=== PATIENT | male | born 1960 | race Caucasian/White ===

== ENCOUNTER 2018-07-18 17:03 | Observation (INO) ==
[2018-07-18] MEDS ORDERED: DILTIAZEM HCL 5 MG/ML VIAL IV ONE ×2 (17:12→17:16)
--- NOTE | 2018-07-18 17:15 | ERNOTE ---
Dyspnea - General Presenting Symptoms: shortness of breath Time Seen by Provider: 07/18/18 17:03 Source: patient Exam Limitations: no limitations - Immun/Allergies/Home Medications Immunizations: IMMUNIZATION HX Immunizations Up to Date Yes History of Influenza Vaccine No Hx Pneumococcal Vaccination No Allergies/Adverse Reactions: Allergies No Known Allergies Allergy (Verified 07/18/18 17:09) Home Medications: HOME MEDICATIONS Zolpidem Tartrate [Ambien] 10 mg PO HS PRN 02/14/18 [Last Taken Unknown] Celecoxib [Celebrex] 200 mg PO DAILY 07/18/18 [Last Taken Unknown] Diltiazem HCl [Cardizem] 30 mg PO QID #120 tablet 07/18/18 [Last Taken Unknown] traZODone HCL [Trazodone HCl] 50 mg PO ONCE PRN 07/18/18 [Last Taken Unknown] - History of Present Illness Narrative: Patient has been short of breath for about a month, he denies any chest pain, no palpitation, no recent illness or prior symptoms. He had an out patient EKG done and was found to be in afib with RVR and send to the ER. He had bilateral knee replacement five months ago, returned to work two months ago after being off for three months. Initiating event: Denies: upper resp illness, out of meds Frequency of episodes: Reports: no prior episodes Modifying Factors - (Improves): Reports: rest Modifying Factors (Worsens): Reports: activity Associated Symptoms-Dyspnea: Denies: fever/chills, chest pain/discomfort, palpitations, cough, wheezing, leg/calf pain Prior Treatment: Reports: recently seen. Denies: currently on antibiotics Review of Systems - Review of Systems Constitutional: Absent: recent illness, fever ENT: Absent: nose congestion, sore throat Respiratory: Present: shortness of breath. Absent: cough Cardiology: Present: chest pain Gastrointestinal/Abdominal: Absent: nausea, abdominal pain Genitourinary: Present: no symptoms reported Musculoskeletal: Absent: back pain Neurological: Absent: headache Medical History (Last Updated 07/18/18 @ 17:14 by Kate Magdaleno MD) Osteoarthritis Surgical History: Surgical History (Last Updated 07/18/18 @ 18:56 by Isabel Krishnamurthy RN) Hx of total knee replacement Family History: Family History (Last Updated 07/18/18 @ 18:58 by Isabel Krishnamurthy RN) Sister Strong family heart hx Mother Strong family heart hx Brother Strong family heart hx Father Strong family heart hx Social History: Preferred Language Montenegrin Smoking Status Former smoker Abuse History No History of abuse Psych History No pertinent hx Alcohol Use none Drug Use benzodiazepine Physical Exam - Physical Exam General Appearance: Present: wd/wn, alert, no apparent distress, anxious Head Exam: Present: normal inspection Eye Exam: Normal inspection: bilateral Ears, Nose, Throat: Present: normal pharynx Respiratory: Present: no respiratory distress, decreased breath sounds, expiration (prolonged) Cardiovascular/Chest: Present: tachycardia, irregularly irregular Gastrointestinal/Abdominal: Present: nontender, nondistended, soft Extremity Exam: Present: no edema Neurological Exam: Present: alert, oriented, normal mood/affect, no motor/sensory deficits Skin Exam: Present: normal color, warm/dry ED Progress - Results and Orders Patient's Lab Results:: I have reviewed the patient's lab results. - Vital Signs Patient's Vital Signs:: I have reviewed the patient's vital signs. Vital Signs: Vital Signs 07/18/18 17:06 Temperature 36.5 C Pulse Rate 167 H Respiratory Rate 22 H O2 Sat by Pulse Oximetry 99 - EKG EKG: atrial fibrillation EKG read: Interp. by me - X-Ray X-Ray #1 X-Ray: chest - cardiolomegalie, venous congestion Interpretation: Interp. by nv - CT/Ultrasound CT/Ultrasound Narrative: CT chest .1. Negative for acute pulmonary thromboembolism. 2. Suboptimal opacification of the thoracic aorta for angiographic evaluation, and nearly equivalent noncontrast imaging in regards to the thoracic aorta, without obvious acute findings. 3. Pulmonary vascular congestion, and interlobular septal prominence suggestive of interstitial edema. Other considerations also include diffuse interstitial infection/pneumonitis, versus lymphangitic spread of tumor. 4. Mild cardiomegaly. 5. Trace bilateral pleural fluid. 6. Peripheral bronchial wall thickening which could be due to interstitial edema affecting the peribronchial interstitium, but also consider superimposed chronic or acute bronchitis. 7. Recommend follow-up chest CT in 3-6 months. - Progress/Reassessment Chief Complaint: Dyspnea Progress Note-Subjective: 07/18/18 18:00 discussed test results, suggested admission for rate control, patient was very adamant that he didn't want to get admitted, is concerned about medical bills, insists on going home, resists discussing about follow up discussed risk of worsening CHF if rate not controlled discussed risk of stroke, patient is ready to sign out AMA will treat with oral cardizem 07/18/18 18:45 fiance at bedside patient now willing to stay 07/18/18 20:[address] Lee, okay to admit and continue to give cardizem 30mg po q6hr, as HR in 90's currently 07/18/18 20:[address] results with patient Departure Clinical Impression: Atrial fibrillation with RVR Congestive heart failure Qualifiers: Heart failure type: unspecified Heart failure chronicity: acute Qualified Code(s): I50.9 - Heart failure, unspecified - Departure Disposition: Against medical advice Condition: Stable
[2018-07-18 17:28] LABS: Hematocrit 41.1 % (42.0-52.0); Hemoglobin 13.6 gm/dL (13.5-18.0); Mean Cell Volume 92.2 fl (78-100); Mean Corpuscular Hemoglobin 30.5 pg (27-31); Mean Corpuscular Hgb Conc 33.1 g/dl (32-36); Mean Platelet Volume 9.9 fl (8-11.3); Neutrophil # 3.8 K/mm3 (1.3-6.0); Platelet Count 256 K/mm3 (150-450); Red Blood Count 4.46 M/mm3 (4.7-6.0); Red Cell Distribution Width 14.6 % (11.5-14.0); White Blood Count 7.1 K/mm3 (4.0-10.5)
[2018-07-18 17:51] LABS: ALT 25 U/L (19-67); AST 18 U/L (0-48); Albumin * 4.1 gm/dl (3.4-5.0); Alkaline Phosphatase * 75 U/L (50-170); Anion Gap 13.3 mmol/L (6.8-13.8); BNP * 1544 pg/mL (5-175); BUN/Creatinine Ratio 16.7 (9.0-21.6); Bilirubin, Total 0.6 mg/dL (0.0-1.1); Blood Urea Nitrogen 17 mg/dL (6-23); Ca. Corrected For Albumin 8.4 mg/dL (8.4-10.2); Calcium * 8.8 mg/dL (7.9-10.9); Carbon Dioxide 23.5 mmol/L (24-32.6); Chloride 107 mmol/L (97-106); Glucose * 105 mg/dL (70-110); Potassium 3.8 mmol/L (3.4-4.6); Sodium 140 mmol/L (132-142); TSH * 1.344 uIU/mL (0.358-3.74); Total Protein 7.3 gm/dL (6.2-8.2); Troponin I Less than 0.017 ng/mL (0.00-0.10)
[2018-07-18] MEDS ORDERED: DILTIAZEM HCL 30 MG TABLET PO ONE (18:08)
[2018-07-18] MEDS ORDERED: DILTIAZEM HCL 30 MG TABLET ONE (18:10)
[2018-07-18] MEDS ORDERED: ACETAMINOPHEN 325 MG TABLET PO PRN (20:59)
[2018-07-18] MEDS ORDERED: SENNOSIDES/DOCUSATE SODIUM 1 TAB TABLET PO PRN (20:59)
[2018-07-18] MEDS ORDERED: ZOLPIDEM TARTRATE 10 MG TABLET PO PRN (20:59)
[2018-07-18] MEDS ORDERED: traMADol HCL 50 MG TABLET PO PRN (22:03)
[2018-07-18] MEDS ORDERED: HYDROcodone/ACETAMINOPHEN 1 EACH TABLET PO PRN (22:04)
[2018-07-18] MEDS: FUROSEMIDE 40 MG TABLET PO SCH ×2 (22:16→22:18)
[2018-07-18] MEDS: POTASSIUM CHLORIDE 20 MEQ TABLET.SA PO SCH (22:17)
[2018-07-18] MEDS: HYDROcodone/ACETAMINOPHEN 1 EACH TABLET PO PRN (22:18)
[2018-07-19] MEDS: DILTIAZEM HCL 30 MG TABLET PO SCH ×2 (00:39→05:09)
[2018-07-19 06:00] LABS: Albumin * 3.9 gm/dl (3.4-5.0); Anion Gap 12.3 mmol/L (6.8-13.8); BUN/Creatinine Ratio 13.2 (9.0-21.6); Bilirubin, Total 0.7 mg/dL (0.0-1.1); Ca. Corrected For Albumin 8.8 mg/dL (8.4-10.2); Carbon Dioxide 27.6 mmol/L (24-32.6); Chol/HDL Risk Ratio 2.2 mg/dL (3.3-5.0); Estimated Creat Clear 88.6; Potassium 3.9 mmol/L (3.4-4.6); Total Protein 7.2 gm/dL (6.2-8.2)
[2018-07-19 06:02] LABS: Troponin I 0.03 ng/mL (0.00-0.10)
[2018-07-19 06:23] LABS: CKMB 1.1 ng/mL (0.0-9.0)
[2018-07-19] MEDS ORDERED: DILTIAZEM HCL 30 MG TABLET PO SCH (06:46)
[2018-07-19] MEDS: HYDROcodone/ACETAMINOPHEN 1 EACH TABLET PO PRN ×2 (07:02→12:40)
[2018-07-19] MEDS: FUROSEMIDE 40 MG TABLET PO SCH ×2 (07:02→17:02)
[2018-07-19] MEDS ORDERED: APIXABAN 5 MG TABLET PO SCH (09:00)
[2018-07-19] MEDS: POTASSIUM CHLORIDE 20 MEQ TABLET.SA PO SCH ×2 (09:15→17:00)
[2018-07-19 11:28] LABS: Anion Gap 9.5 mmol/L (6.8-13.8); BUN/Creatinine Ratio 12.1 (9.0-21.6); Calcium * 9.3 mg/dL (7.9-10.9); Carbon Dioxide 30.4 mmol/L (24-32.6); Estimated Creat Clear 80.9; Magnesium 2.1 mg/dL (1.2-2.8); Potassium 3.9 mmol/L (3.4-4.6)
[2018-07-19] MEDS: DILTIAZEM HCL 60 MG TABLET PO SCH ×2 (12:37→17:01)
--- NOTE | 2018-07-19 16:20 | DS ---
(1) New onset atrial fibrillation Problem: Acute (2) Combined systolic and diastolic congestive heart failure Problem: Acute (3) MIKEL (obstructive sleep apnea) Problem: Suspected (4) HFrEF (heart failure with reduced ejection fraction) Problem: Acute (5) Atrial fibrillation with RVR Problem: Acute Description of Stay: ADMISSION DATE: 07/18/2018 DISCHARGE DATE: 07/19/2018 ADMISSION HPI: The patient went to his PCP on 07/18/2018 for a routine follow-up. While at the visit, his heart rhythm was found to be abnormal so he was sent to the ED for further evaluation. In the ED he was found to be in atrial fibrillation with a heart rate between 140-150. He denies ever having a prior history of atrial fibrillation. Upon questioning, the patient admits to feeling short of breath, even at rest, for the past month or so but hasnt really thought much of it and he really does not like having to see doctors because he states he already has too many unpaid medical bills and he cant afford to have to pay any more. Again on further questioning, he admits he has extreme fatigue and daytime sleepiness and has absolutely no energy. When asked, he admits he snores and states "like a freight train." Other than being short of breath, the patient states he does not notice he is in an abnormal rhythm and denies any palpitations or fluttering in his chest. He also denies any chest pain. HOSPITAL COURSE: The patient was admitted to the hospital for newly diagnosed atrial fibrillation with RVR. He was rate controlled shortly after starting oral diltiazem. I am highly suspicious the patient's atrial fibrillation is related to his untreated and undiagnosed severe obstructive sleep apnea. The patient's Mallampati Score is Class IV and with further questioning he reveals multiple signs and symptoms consistent with untreated MIKEL. He will need a sleep study after discharge MALIKA. TSH checked in ED and WNL. I discussed the reason behind anticoagulation as well as the risks and benefits of anticoagulation at length with the patient. We discussed both coumadin vs. NOACs. I again discussed with the patient that based on his echocardiogram results, I would recommend that he should be on Coumadin but the patient was adamant that he would only take Eliquis because there is no way he could do the monitoring that is required for coumadin. [id number] Score = 2 (CHF=1, HTN=1). Also during this admission, the patient was found to have a new diagnosis of combined systolic and diastolic heart failure/HFrEF. He was started on Lasix and potassium for now and will need close follow-up for ongoing cardiac care. Patient will need started on a beta-luke and LYNETTE-I once he is euvolemic. He will also need to have a repeat echo to re-evaluate his heart failure in approximately 3 months after he is euvolemic and optimally medically treated as he may need consideration for [employer] (cardiac resynchronization therapy, AKA biventricular pacemaker defibrillator) due to increased risk for sudden cardiac . The patient also admitted to drinking an energy drink called rhinorush which he states has ephiderine in it. I advised him to stop drinking this and all other energy drinks starting immediately. FOLLOW-UP APPOINTMENTS: -PCP, within 1 week -Check BMP within 1 week -Referral to Cardiology for ongoing management (patient request) -Sleep Study MALIKA -Follow-up chest CT with contrast in 3-6 months NEW OR CHANGED MEDICATIONS: -Apixaban [Eliquis] 5 mg PO BID #60 tablet -Diltiazem HCl [Diltiazem 24Hr Cd] 180 mg PO DAILY #30 cap.er.24h -Furosemide [Lasix] 40 mg PO DAILY #30 tablet -HYDROcodone/ACETAMINOPHEN [Volga 5-325] 1 ea PO Q6H PRN #50 tab. PRN Reason: Severe Pain (Pain Scale 7-10). -Potassium Chloride [K-Dur] 20 meq PO DAILY #30 tablet.sa DISCONTINUED MEDICATIONS: -Presentain RADIOLOGY REPORTS: PA and lateral CXR on 07/18/2018: Normal lung volumes. No consolidation or mass. There is central vascular congestion, and peripheral linear lung markings are present. No pneumothorax or pleural fluid collections. Mild enlargement of the cardiac silhouette noted. Mild tortuosity of the thoracic aorta noted, with overlying atherosclerotic vascular calcifications. Trachea is in normal position. Bones show degenerative changes of the spine. IMPRESSION: 1. Pulmonary vascular congestion/interstitial edema suggested. 2. Mild cardiomegaly. Chest CTA on 07/18/2018: Pulmonary Arteries: Diagnostic Quality (for pulmonary arteries): Opacification of the pulmonary arterial branches is adequate. The breath hold is adequate. There is streak artifact from contrast material within the superior vena cava, which affects the adjacent pulmonary arteries. No definite filling defects are noted to suggest pulmonary thromboembolism. No definite axial CT image findings of right heart strain. Aorta: Opacification of the thoracic aorta is suboptimal for angiographic evaluation, and nearly equivalent to a noncontrast CT for the imaging of the thoracic aorta, but no definite focal finding is seen. Multiple artifacts related to cardiac motion and streak artifact from contrast in the adjacent superior vena cava noted. Mediastinum: No mediastinal mass or lymphadenopathy noted. Heart: No significant pericardial effusion noted. Mild cardiomegaly suggested. Lung Parenchyma: The lung parenchyma demonstrates no focal consolidation. Interlobular septal thickening noted diffusely throughout. Pulmonary vascular prominence noted diffusely throughout. Calcified nodule in the right lung likely old granuloma. Central Airways: There is peripheral bronchial wall thickening. The trachea appears to be grossly intact. Pleural Spaces: There is trace dependent pleural fluid noted. There is also some fluid intercalated within the major fissures bilaterally. There is no definable pneumothorax. Bones: Bones are grossly intact. Chest Wall/Axillae: Anterior chest wall is grossly unremarkable. Axillary regions are also grossly normal. Upper Abdomen: Visualized portions of the abdomen grossly unremarkable. IMPRESSION: 1. Negative for acute pulmonary thromboembolism. 2. Suboptimal opacification of the thoracic aorta for angiographic evaluation, and nearly equivalent noncontrast imaging in regards to the thoracic aorta, without obvious acute findings. 3. Pulmonary vascular congestion, and interlobular septal prominence suggestive of interstitial edema. Other considerations also include diffuse interstitial infection/pneumonitis, versus lymphangitic spread of tumor. 4. Mild cardiomegaly. 5. Trace bilateral pleural fluid. 6. Peripheral bronchial wall thickening which could be due to interstitial edema affecting the peribronchial interstitium, but also consider superimposed chronic or acute bronchitis. 7. Recommend follow-up chest CT in 3-6 months. Right Venous Duplex Ultrasound on 07/19/2018: Duplex Doppler grayscale and color interrogation of the right deep venous system was performed. There is normal compressibility, augmentation, and phasicity of the deep venous system. The posterior tibial veins are patent. IMPRESSION: NO EVIDENCE FOR RIGHT LOWER EXTREMITY DVT. 2D echocardiogram on 07/19/2018: Left Ventricle: Normal in size. Borderline concentric LVH. Ejection fraction = 36%. Mild to moderate global hypokinesis of LV. Right Ventricle: Normal in size and function. Atria: Left atrium is moderately dilated. Right atrium is mildly dilated. Mitral Valve: Findings consistent with pulmonary wedge pressure >20mmHg. Findi ngs consistent with diastolic dysfunction. No prolapse. No stenosis. Moderate regurgitation. Tricuspid Valve: No stenosis. Trace regurgitation. RV systolic pressure elevated at 36mmHg. Aortic Valve: Opens well. No hemodynamically significant valvular stenosis. No regurgitation. Pulmonic Valve: No stenosis. Mild regurgitation. Great Vessels: Mildly dilated ascending aorta. The IVC is dilated. Pericardium/Pleural: No pericardial effusion. The coordination of care and discharge process provided by me on the day of discharge for Deo Holt was at least 45 minutes. This time consisted of dir ect patient care which included counseling, coordinating and discussing the patients multiple medical conditions as well as time spent coordinating and ensuring that the patient had an appropriate discharge plan in place. Procedures Performed: none Results and Findings: Lab Pending Results 07/18/18 17:21: WBC 7.1, RBC 4.46 L, Hgb 13.6, Hct 41.1 L, MCV 92.2, MCH 30.5, MCHC 33.1, RDW 14.6 H, Plt Count 256, MPV 9.9, Immature Gran % (Auto) 0.10, Immature Gran # (Auto) 0.01, Neutrophils % 54.0, Lymphocytes % 32.8, Monocytes % 9.6 H, Eosinophils % 2.8, Basophils % 0.7, Nucleated RBC % 0.0, Neutrophils # 3.8, Lymphocytes # 2.32, Monocytes # 0.7, Eosinophils # 0.2, Absolute Basophils 0.1 07/18/18 17:21: Sodium 140, Plasma Sodium 140, Potassium 3.8, Chloride 107 H, Carbon Dioxide 23.5 L, Anion Gap 13.3, BUN 17, Creatinine 1.02, Est GFR (Non-Af Amer) 79, BUN/Creatinine Ratio 16.7, Random Glucose 105, Calcium 8.8, Calcium Adj for Albumin 8.4, Total Bilirubin 0.6, AST 18, ALT 25, Alkaline Phosphatase 75, Troponin I Less than 0.017, B-Natriuretic Peptide 1544 H, Total Protein 7.3, Albumin 4.1, TSH 1.344 07/18/18 18:15: D-Dimer 0.83 H 07/19/18 05:15: Sodium 139, Plasma Sodium 139, Potassium 3.9, Chloride 103, Carbon Dioxide 27.6, Anion Gap 12.3, BUN 14, Creatinine 1.06, Est GFR (Non-Af Amer) 76, BUN/Creatinine Ratio 13.2, Random Glucose 108, Calcium 9.0, Calcium Adj for Albumin 8.8, Total Bilirubin 0.7, AST 16, ALT 25, Alkaline Phosphatase 73, Creatine Kinase 73, CK-MB (CK-2) 1.1, CK-MB (CK-2) Rel Index 1.5, Troponin I 0.030, Total Protein 7.2, Albumin 3.9, Triglycerides 82, Cholesterol 165, LDL Cholesterol 76, VLDL Cholesterol 16, HDL Cholesterol 73 H, Cholesterol/HDL Ratio 2.2 L 07/19/18 11:17: Sodium 136, Plasma Sodium 136, Potassium 3.9, Chloride 100, Carbon Dioxide 30.4, Anion Gap 9.5, BUN 14, Creatinine 1.16, Est GFR (Non-Af Amer) 68, BUN/Creatinine Ratio 12.1, Random Glucose 94, Calcium 9.3, Magnesium 2.1 Discharge Location: Home Disposition: Home self-care Condition: Fair Discharge Activity: Activity as tolerated Discharge Diet: Low salt, Low fat/chol Referrals: Katey Hdez, [employer] [Primary Care Provider] - Problem Oriented Discharge Instructions to Patient/Family: Atrial Fibrillation, [id number] Additional Patient Instructions (free text): -Follow-up with PCP, Dr. Lee, next week (patient prefers appointments at 1430 or later) appointment on 07-26-18 at 3:30pm. -Check BMP at follow-up visit -Refer to cardiology at follow-up visit -Outpatient home sleep study needs arranged Prescriptions (Any new or edited meds): Apixaban [Eliquis] 5 mg PO BID #60 tablet Diltiazem HCl [Diltiazem 24Hr Cd] 180 mg PO DAILY #30 cap.er.24h Furosemide [Lasix] 40 mg PO DAILY #30 tablet HYDROcodone/ACETAMINOPHEN [Volga 5-325] 1 ea PO Q6H PRN #50 tab PRN Reason: Severe Pain (Pain Scale 7-10) Potassium Chloride [K-Dur] 20 meq PO DAILY #30 tablet.sa Complete Home Medications List: Complete Home Medication List: Zolpidem Tartrate [Ambien] 10 mg PO HS PRN 02/14/18 Apixaban [Eliquis] 5 mg PO BID #60 tablet 07/19/18 Diltiazem HCl [Diltiazem 24Hr Cd] 180 mg PO DAILY #30 cap.er.24h 07/19/18 Furosemide [Lasix] 40 mg PO DAILY #30 tablet 07/19/18 HYDROcodone/ACETAMINOPHEN [Volga 5-325] 1 ea PO Q6H PRN #50 tab 07/19/18 Potassium Chloride [K-Dur] 20 meq PO DAILY #30 tablet.sa 07/19/18 Amb Orders for Discharge: Basic Metabolic Panel Time Frame: 1 Week, Location: Laboratory
[2018-07-19] MEDS ORDERED: DILTIAZEM HCL 60 MG CAP.SR.12H PO SCH (16:30)
[2018-07-19 17:06] VITALS: BP 150/96
--- NOTE | 2018-07-19 18:08 | HP ---
Chief Complaint - Chief Complaint Date of Service: 07/19/18 Time of Service: 07:20 Chief Complaint: My doctor made me come History of Present Illness: The patient went to his PCP on 07/18/2018 for a routine follow-up. While at the visit, his heart rhythm was found to be abnormal so he was sent to the ED for further evaluation. In the ED he was found to be in atrial fibrillation with a heart rate between 140-150. He denies ever having a prior history of atrial fibrillation. Upon questioning, the patient admits to feeling short of breath, even at rest, for the past month or so but hasnt really thought much of it and he really does not like having to see doctors because he states he already has too many unpaid medical bills and he cant afford to have to pay any more. Again on further questioning, he admits he has extreme fatigue and daytime sleepiness and has absolutely no energy. When asked, he admits he snores and states "like a freight train." Other than being short of breath, the patient states he does not notice he is in an abnormal rhythm and denies any palpitations or fluttering in his chest. He also denies any chest pain. Medical History (Last Updated 07/25/18 @ 09:07 by Dorene Benito) Blurred vision Onset Date: Unknown Erectile dysfunction Onset Date: Unknown Osteoarthritis Onset Date: Unknown Psoriasis Onset Date: Unknown Surgical History: Surgical History (Last Updated 07/25/18 @ 09:08 by Dorene Benito) Hx of colonoscopy Onset Date: Unknown Hx of total knee replacement Hx of wisdom tooth extraction Onset Date: Unknown Family History: Family History (Last Updated 07/25/18 @ 09:09 by Dorene Benito) Sister Strong family heart hx Mother Strong family heart hx Brother Strong family heart hx Father Strong family heart hx Pacemaker Social History: Patient Lives/Resources Home 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 Absent: Chest Pain Abdominal: Present: No Symptoms Reported Genitourinary: Present: No Symptoms Reported Musculoskeletal: Present: Joint Pain - right knee and leg pain Neurological: Present: No Symptoms Reported Skin: Present: No Symptoms Reported Endocrine: Present: No Symptoms Reported Misc: All systems neg except as marked Immunizations: IMMUNIZATION HX Immunizations Up to Date Yes History of Influenza Vaccine No Hx Pneumococcal Vaccination No Allergies/Adverse Reactions: Allergies Allergy/AdvReac Type Severity Reaction Status Date / Time No Known Allergies Allergy Verified 07/19/18 01:57 Home Medications: HOME MEDICATIONS Zolpidem Tartrate [Ambien] 10 mg PO HS PRN 02/14/18 [Last Taken 07/17/18] Apixaban [Eliquis] 5 mg PO BID #60 tablet 07/19/18 [Last Taken Unknown] Diltiazem HCl [Diltiazem 24Hr Cd] 180 mg PO DAILY #30 cap.er.24h 07/19/18 [Last Taken Unknown] Furosemide [Lasix] 40 mg PO DAILY #30 tablet 07/19/18 [Last Taken Unknown] HYDROcodone/ACETAMINOPHEN [[place] 5-325] 1 ea PO Q6H PRN #50 tab 07/19/18 [Last Taken Unknown] Potassium Chloride [K-Dur] 20 meq PO DAILY #30 tablet.sa 07/19/18 [Last Taken Unknown] Exam - Exam Vital Signs: Vital Signs - Last Taken Temp 36.5 C 07/19/18 17:15 Pulse 98 07/19/18 17:15 Resp 20 07/19/18 17:15 BP 150/96 H 07/19/18 17:15 Pulse Ox 99 07/19/18 17:15 Constitutional: Present: Alert, Oriented x3, Well developed, Well nourished, No distress, Middle aged ENT Exam: Present: hearing grossly normal, moist mucous membranes, other - Mallampati Score = Class IV Eye Exam: bilateral eye: normal inspection Neck: Present: non-tender, normal inspection, trachea midline Respiratory: Present: lungs clear, normal breath sounds, no respiratory distress, no accessory muscle use Cardiovascular/Chest: Present: irregularly irregular Abdomen: Present: soft, nontender, nondistended Extremity: Present: leg pain - right, pedal edema - right>left Skin Exam: Present: normal color, warm/dry Neurologic: Present: no motor/sensory deficits, alert, normal mood/affect, oriented x 3 Appearance: Present: appropriate appearance, appropriate insight, neat, no memory impairment Eye contact: Present: cooperative, good eye contact, normal speech Thoughts: Present: normal thought pattern, no apparent hallucination Diagnostic Studies: Abnormal Lab Results 07/18/18 07/19/18 Range/Units 18:15 05:15 D-Dimer 0.83 H (0.19-0.49) ug/mL HDL Cholesterol 73 H (40-60) mg/dL Cholesterol/HDL Ratio 2.2 L (3.3-5.0) mg/dL Laboratory Results WBC 7.1 K/mm3 (4.0-10.5) 07/18/18 17:21 RBC 4.46 M/mm3 (4.7-6.0) L 07/18/18 17:21 Hgb 13.6 gm/dL (13.5-18.0) 07/18/18 17:21 Hct 41.1 % (42.0-52.0) L 07/18/18 17:21 MCV 92.2 fl (78-100) 07/18/18 17:21 MCH 30.5 pg (27-31) 07/18/18 17:21 MCHC 33.1 g/dl (32-36) 07/18/18 17:21 RDW 14.6 % (11.5-14.0) H 07/18/18 17:21 Plt Count 256 K/mm3 (150-450) 07/18/18 17:21 MPV 9.9 fl (8-11.3) 07/18/18 17:21 Immature Gran % (Auto) 0.10 % (0.001-0.429) 07/18/18 17:21 Immature Gran # (Auto) 0.01 K/mm3 (0.000-0.0310) 07/18/18 17:21 Neutrophils % 54.0 % (42-75.0) 07/18/18 17:21 Lymphocytes % 32.8 % (20-51) 07/18/18 17:21 Monocytes % 9.6 % (0.0-9) H 07/18/18 17:21 Eosinophils % 2.8 % (0.0-3.0) 07/18/18 17:21 Basophils % 0.7 % (0.0-1.0) 07/18/18 17:21 Nucleated RBC % 0.0 k/mm3 (0-1) 07/18/18 17:21 Neutrophils # 3.8 K/mm3 (1.3-6.0) 07/18/18 17:21 Lymphocytes # 2.32 k/mm3 (1.5-3.5) 07/18/18 17:21 Monocytes # 0.7 k/mm3 (0.0-1.0) 07/18/18 17:21 Eosinophils # 0.2 k/mm3 (0.0-0.7) 07/18/18 17:21 Absolute Basophils 0.1 k/mm3 (0.0-0.1) 07/18/18 17:21 D-Dimer 0.83 ug/mL (0.19-0.49) H 07/18/18 18:15 Sodium 136 mmol/L (132-142) 07/19/18 11:17 Plasma Sodium 136 mmol/L (130-142) 07/19/18 11:17 Potassium 3.9 mmol/L (3.4-4.6) 07/19/18 11:17 Chloride 100 mmol/L (97-106) 07/19/18 11:17 Carbon Dioxide 30.4 mmol/L (24-32.6) 07/19/18 11:17 Anion Gap 9.5 mmol/L (6.8-13.8) 07/19/18 11:17 BUN 14 mg/dL (6-23) 07/19/18 11:17 Creatinine 1.16 mg/dL (0.4-1.4) 07/19/18 11:17 Est GFR (Non-Af Amer) 68 mL/min (60-130) 07/19/18 11:17 BUN/Creatinine Ratio 12.1 (9.0-21.6) 07/19/18 11:17 Random Glucose 94 mg/dL (70-110) 07/19/18 11:17 Calcium 9.3 mg/dL (7.9-10.9) 07/19/18 11:17 Calcium Adj for Albumin 8.8 mg/dL (8.4-10.2) 07/19/18 05:15 Magnesium 2.1 mg/dL (1.2-2.8) 10/18/18 11:17 Total Bilirubin 0.7 mg/dL (0.0-1.1) 07/19/18 05:15 AST 16 U/L (0-48) 07/19/18 05:15 ALT 25 U/L (19-67) 07/19/18 05:15 Alkaline Phosphatase 73 U/L (50-170) 07/19/18 05:15 Creatine Kinase 73 U/L (0-259) 07/19/18 05:15 CK-MB (CK-2) 1.1 ng/mL (0.0-9.0) 07/19/18 05:15 CK-MB (CK-2) Rel Index 1.5 (0.0-3.6) 07/19/18 05:15 Troponin I 0.030 ng/mL (0.00-0.10) 07/19/18 05:15 B-Natriuretic Peptide 1544 pg/mL (5-175) H 07/18/18 17:21 Total Protein 7.2 gm/dL (6.2-8.2) 07/19/18 05:15 Albumin 3.9 gm/dl (3.4-5.0) 07/19/18 05:15 Triglycerides 82 mg/dL (30-200) 07/19/18 05:15 Cholesterol 165 mg/dL (0-200) 07/19/18 05:15 LDL Cholesterol 76 mg/dL (70-130) 07/19/18 05:15 VLDL Cholesterol 16 mg/dL (5-40) 07/19/18 05:15 HDL Cholesterol 73 mg/dL (40-60) H 07/19/18 05:15 Cholesterol/HDL Ratio 2.2 mg/dL (3.3-5.0) L 07/19/18 05:15 TSH 1.344 uIU/mL (0.358-3.74) 07/18/18 17:21 Assessment/Plan - Narrative Narrative: I am highly suspicious the patient's atrial fibrillation is related to his untreated and undiagnosed severe obstructive sleep apnea. The patient's Mallampati Score is Class IV. He will need a sleep study after discharge MALIKA. TSH checked in ED and WNL. Patient appears to have new onset heart failure as well based on his imaging and BNP and we will get a 2D echo for further evaluation. Possible discharge later today as long as the patient remains stable and is rate controlled. We will transition the patient to Diltiazem ER 180mg PO daily at discharge. I discussed the reason behind anticoagulation as well as the risks and benefits of anticoagulation at length with the patient. We discuss both coumadin vs. NOACs. I discussed that we still need to wait until his echo has been completed because if he has valvular dysfunction, then coumadin is the best drug of choice. We checked with the patient's insurance company and found out that the patient will have to pay a $20 copay per month for Eliquis. Ultimately, the patient made the decision to start Eliquis 5mg PO BID. I discussed that we made need to use coumadin depending on his echo results but the patient adamantly stated that he didn't care, he was only going to take Eliquis because there is no way he could do the monitoring that is required for coumadin. The patient was not happy to be in the hospital and he originally wanted to sign out AMA but after I talked with the patient and explained everything that was going on in detail, he was actually quite apologetic and understood the importance of needing to remain in the hospital. Patient also noted to have right lower extremity edema and pain and the patient states he has had this swelling and pain since his right total knee arthroplasty earlier this year. When further questioned, the patient states he was on shots in his stomach (which I assume was lovenox) while he was in the hospital after his knee replacement but he was not discharged home on any blood thinners and he even denies taking any aspirin after his knee replacement. He states he was started on Celebrex back in March/April for his pain and has been taking that regularly since March or April. We will get a right lower extremity venous duplex ultrasound for further evaluation. - Assessment/Plan (1) New onset atrial fibrillation Problem: Acute (2) MIKEL (obstructive sleep apnea) Problem: Suspected (3) Atrial fibrillation with RVR Problem: Acute (4) Congestive heart failure Problem: Suspected Qualifiers: Heart failure type: unspecified Heart failure chronicity: acute Qualified Code(s): I50.9 - Heart failure, unspecified (5) Edema of right lower extremity Problem: Acute
--- NOTE | 2018-07-20 12:02 | ECHO ---
This report is available in the EMR
== END 2018-07-19 17:26 | disposition home or self-care (01) ==
LOC: ER 17:03 → MS 17:03
PROVIDERS: ADMIT Internal Medicine; ATTEND Internal Medicine
CPT/HCPCS: 36415; 71020; 71046; 71275; 80048; 80053; 80061; 82550; 82553; 83519; 83735; 83880; 84443; 84484; 85025; 85379; 93005; 93306; 93971; 94760; 96374; 99285; G0378